=== PATIENT | male | born 1970 | race Two or more races ===

== ENCOUNTER → 2024-08-04 | Emergency (ER) | payer OTHER ==
[~2024-08-04] VITALS: Ht 182.9 cm; Wt 100.7 kg
[~2024-08-04] MED LIST: 0.9 % SODIUM CHLORIDE 1,000 ML IV SCH; AMLODIPINE-OLM1 EAC2; HYDRALAZINE HCL10 MG; PROTONIX40 M1; SIMVASTATIN5 MG
== END | disposition left against medical advice (07) ==
LOC: ER 14:18
DX: R07.9 Chest pain, unspecified (principal); R42 Dizziness and giddiness; I10 Essential (primary) hypertension; Z88.9 Allergy status to unspecified drugs, medicaments and biological substances